=== PATIENT | female | born 1945 | race Caucasian/White ===

== ENCOUNTER 2019-04-02 08:30 | Emergency (ER) | payer MEDICARE, OTHER, MEDICAID | END 2019-04-02 09:47 | disposition home or self-care (01) | LOC: FTE 08:30 | DX: S90.512A Abrasion, left ankle, initial encounter (principal); S90.511A Abrasion, right ankle, initial encounter; I10 Essential (primary) hypertension; W18.39XA Other fall on same level, initial encounter; Y92.410 Unspecified street and highway as the place of occurrence of the external cause | CPT/HCPCS: 73562; 73562-50; 99284-25 ==